=== PATIENT | female | born 1985 | race Caucasian/White ===

== ENCOUNTER → 2016-07-26 | Outpatient (CLI) | payer BC ==
[~2016-07-26] MED LIST: BCPILLS PO; DIPH25CA37 PO; EPP3/2 IM; LORA10TA57 PO; PRENTAB26 PO
[2016-07-26 16:36] LABS: HEMATOCRIT 36.5 % (37-47)
[2016-07-26 18:10] LABS: GTGD 50 Grams
[2016-07-26 18:18] LABS: URINE APPEARANCE CLEAR (CLEAR); URINE BILIRUBIN NEG (NEG); URINE COLOR YELLOW; URINE EPITHELIAL CELL AUTO 20-30 /lpf (0-5); URINE NITRITE NEG (NEG); URINE PH 6.5 (4.5-7.5); URINE SPECIFIC GRAVITY 1.015 (1.000-1.030); UROBILINOGEN NEG (NEG)
[2016-07-26 18:29] LABS: REVIEW REQ? NO
[2016-07-26 18:30] LABS: MANUAL MICROSCOPIC REQUIRED? NO
== END | disposition home or self-care (01) ==
LOC: C.LAB1850 15:31 → MERGE 15:31
PROVIDERS: ATTEND Obstetrics & Gynecology
DX: Z34.02 Encounter for supervision of normal first pregnancy, second trimester (principal)

== ENCOUNTER → 2016-09-20 | Outpatient (CLI) | payer BC ==
[~2016-09-20] MED LIST changes: +LORA-749 PO; -LORA10TA57 PO
== END | disposition home or self-care (01) ==
LOC: MERGE 17:23 → C.LABSPEC 17:23
PROVIDERS: ATTEND Obstetrics & Gynecology
DX: Z34.83 Encounter for supervision of other normal pregnancy, third trimester (principal)

== ENCOUNTER 2016-10-15 13:38 | Inpatient (IN) | payer BC ==
[~2016-10-15] VITALS: Ht 167.6 cm; Wt 75.0 kg
[~2016-10-15 13:38] MED LIST changes: -PRENTAB26 PO
[2016-10-15] MEDS ORDERED: LACTATED RINGER'S 1000ML 1,000 ML IV SCH (14:12)
[2016-10-15] MEDS ORDERED: LACTATED RINGER'S 1000ML 1,000 ML IV PRN (14:12)
[2016-10-15 14:44] LABS: HEMATOCRIT 42.6 % (37-47); MEAN CELL VOLUME 94.2 fL (80-100); MEAN CORPUSCULAR HEMOGLOBIN 34.1 pg (25-34); MEAN CORPUSCULAR HGB CONC 36.2 g/dl (32-36); MEAN PLATELET VOLUME 11.1 fL (7.4-10.4); PLATELET COUNT 183 K/uL (130-400); RED BLOOD COUNT 4.52 M/uL (4.2-5.4); WHITE BLOOD COUNT 12.81 K/uL (4.8-10.8)
[2016-10-15] MEDS ORDERED: PRENTAB26 PO (15:13)
[2016-10-15 15:14] VITALS: Ht 167.6 cm; Wt 75.0 kg
[2016-10-15] MEDS ORDERED: BUPIVACAINE 0.25% 30 ML VIAL ONE (17:48)
[2016-10-15] MEDS ORDERED: EpHEDrine SULFATE INJ 50 MG/ML AMP ONE (17:49)
[2016-10-15] MEDS ORDERED: FENTANYL 2MCG/ML ROPIV 1.25MG/ML 100ML BAG EPI ONE (17:50)
[2016-10-15] MEDS ORDERED: FENTANYL CITRATE INJ 50 MCG/1 ML 2 ML VIAL ONE (17:50)
[2016-10-15] MEDS ORDERED: NALOXONE HCL INJ 1 MG in SODIUM CHLORIDE 0.9% 1000ML 1,000 ML IV PRN (19:06)
[2016-10-15] MEDS ORDERED: LACTATED RINGER'S 1000ML 500 ML IV PRN (19:06)
[2016-10-15] MEDS ORDERED: ONDANSETRON INJ 2 MG/ML 2 ML VIAL IV PRN (19:15)
[2016-10-15] MEDS ORDERED: DiphenhydrAMINE HCL 50 MG/ML VIAL IV PRN (19:15)
[2016-10-15] MEDS ORDERED: FENTANYL 2MCG/ML ROPIV 1.25MG/ML 100ML BAG EPI PRN (19:15)
[2016-10-15] MEDS ORDERED: EpHEDrine SULFATE INJ 50 MG/ML AMP IV PRN (19:15)
[2016-10-15] MEDS ORDERED: NALBUPHINE HCL INJ 10 MG/ML AMP IV PRN (19:15)
[2016-10-15] MEDS ORDERED: NALOXONE HCL INJ 0.4 MG/1 ML VIAL/CARP IV PRN (19:15)
[2016-10-15] MEDS ORDERED: OXYTOCIN 30 UNITS/500ML NSS IV ONE (19:49)
[2016-10-15] MEDS ORDERED: ACETAMINOPHEN 325 MG TAB PO PRN (20:30)
[2016-10-15] MEDS ORDERED: HYDROCORTISONE ACETATE 25 MG SUPP PR PRN (20:30)
[2016-10-15] MEDS ORDERED: BENZOCAINE 20% AER SPR 82.5 GM CAN EXT PRN (20:30)
[2016-10-15] MEDS ORDERED: DIPHTHERIA/TETANUS/PERTUSSIS 0.5 ML SYR/VIAL IM. ONE (20:30)
[2016-10-15] MEDS ORDERED: OXYTOCIN 30 UNITS/500ML NSS IV PRN (20:30)
[2016-10-15] MEDS ORDERED: ACETAMINOPHEN/CODEINE 300/30MG TAB PO PRN ×2 (20:30)
[2016-10-15] MEDS ORDERED: SUPERCREAM 0.870 % 15GM JAR EXT PRN (20:30)
[2016-10-15] MEDS ORDERED: OXYCODONE/ACETAMINOPHEN 5-325 TAB PO PRN (20:30)
[2016-10-15] MEDS ORDERED: LANOLIN OINT EXT PRN ×2 (20:30)
--- NOTE | 2016-10-15 21:12 | Anesthesia Procedure Note ---
Anesthesia Epidural Removal Nt Date & Time October 15, 2016 at 21:12 Vital Signs Pain Intensity: 0.0 Notes Mental Status: alert / awake / arousable, participated in evaluation Nausea / Vomiting: adequately controlled Pain: adequately controlled Airway Patency, RR, SpO2: stable & adequate BP & HR: stable & adequate Hydration State: stable & adequate Neuraxial Anesthesia: was administered, sensory block is resolving Anesthetic Complications: no major complications apparent, pt satisfied with anesthetic care Epidural: removed without complications, with tip intact
[2016-10-15 23:15] VITALS: BP 125/87; PULSE 69; TEMP 37.3; O2SAT 97
[2016-10-15] MEDS: IBUPROFEN 600 MG TAB PO PRN (23:48)
[2016-10-16] VITALS (7 sets, daily range): BP systolic 112–135; BP diastolic 73–89; PULSE 64–75; TEMP 36.6–36.8; O2SAT 97–99
--- NOTE | 2016-10-16 00:04 | DELIVERY SUMMARY ---
DATE OF OPERATION: 10/15/2016 VAGINAL DELIVERY NOTE Kate presented to labor and delivery on the day of 10/15/2016. She was in active labor at 6 cm, group B strep negative, uncomplicated at 40 weeks. The patient eventually progressed to 7 cm. AROM was performed with thin meconium. She then requested epidural, soon after which she became fully dilated, then pushed for only a short period of time, delivering the baby in left occiput anterior position. Mouth and the nares suctioned with bulb and no nuchal cord noticed. Baby delivered with gentle traction, no excess force used. Live vigorous male infant. Delayed cord clamping occurred. Cord was clamped eventually after pulse was absent in the cord and then cord blood obtained. Placenta removed with gentle traction. She had a first-degree laceration which was repaired with 3-0 Vicryl, this was both on the left and right lateral vaginal areas. Estimated blood loss 150 mL. Sponge and instrument counts correct. I attest to the content of the Intraoperative Record and any orders documented therein. Any exceptio ns are noted below.
[2016-10-16 06:53] LABS: HEMATOCRIT 32.8 % (37-47)
--- NOTE | 2016-10-16 07:14 | Progress Note ---
Subjective October 16, 2016. Subjective conversation w/ patient, physical exam, lab review Ambulation: ambulating normally Voiding: no voiding problems Passing Gas: Yes Diet Tolerance: Regular Diet Lochia: Small Feeding Type: Breast Feeding Pain: improves with med Comment: Patient was seen at the bedside. No acute event overnight. Review of Systems Constitutional: No fever Respiratory: No cough, No shortness of breath Cardiac: No chest pain Breast: No breast lump Abdomen: No nausea, No pain, No vomiting Female : No dysuria Denies headache Objective Vital Signs Date Time Temp Pulse Resp B/P Pulse Ox O2 Delivery O2 Flow Rate FiO2 10/16/16 04:20 36.8 64 16 117/73 98 Room Air 10/15/16 23:15 97 Room Air 10/15/16 23:15 37.3 69 18 125/87 97 Room Air Physical Exam General Appearance: WELL-APPEARING, WD/WN, NO APPARENT DISTRESS Respiratory/Chest: chest non-tender, lungs clear, normal breath sounds, no respiratory distress Cardiovascular: regular rate, rhythm Abdomen: normal bowel sounds, non tender, soft Fundus: Firm, Relation to Umbilicus (1-2 cm below) Extremities: non-tender, no pedal edema, no calf tenderness Laboratory Results Last 24 Hours Test 10/15/16 14:36 10/16/16 06:17 White Blood Count 12.81 K/uL Red Blood Count 4.52 M/uL Hemoglobin 15.4 g/dL 11.4 g/dL Hematocrit 42.6 % 32.8 % Mean Corpuscular Volume 94.2 fL Mean Corpuscular Hemoglobin 34.1 pg Mean Corpuscular Hemoglobin Concent 36.2 g/dl RDW Standard Deviation 43.0 fL RDW Coefficient of Variation 12.6 % Platelet Count 183 K/uL Mean Platelet Volume 11.1 fL Medications Current Inpatient Medications Medications (Trade) Dose Ordered Sig/Michael Route Start Time Stop Time Status Last Admin Dose Admin Oxytocin (Pitocin IV) 30 units UD PRN IV 10/15/16 20:30 11/14/16 20:29 Benzocaine (Dermoplast Aero Spr) 1 appln PRN PRN EXT 10/15/16 20:30 11/14/16 20:29 Cocaine HCl (Supercream 0.870% Cr) BID PRN EXT 10/15/16 20:30 10/29/16 20:29 Hydrocortisone Acetate (Anusol Hc Supp) 25 mg BID PRN RI 10/15/16 20:30 11/14/16 20:29 Lanolin (Lanolin Oint) PRN PRN EXT 10/15/16 20:30 11/14/16 20:29 Prenat Multivit/ [place]/Iron/Folic Ac ( Vitamin Tab) 1 tab DAILY PO 10/16/16 08:00 11/15/16 07:59 Ibuprofen (Motrin Tab) 600 mg Q4H PRN PO 10/15/16 20:30 11/14/16 20:29 10/15/16 23:48 600 MG Acetaminophen (Tylenol Tab) 650 mg Q6H PRN PO 10/15/16 20:30 11/14/16 20:29 Acetaminophen/ Codeine Phosphate (Tylenol w/ Codeine #3 Tab) 1 tab Q4H PRN PO 10/15/16 20:30 11/14/16 20:29 Acetaminophen/ Codeine Phosphate (Tylenol w/ Codeine #3 Tab) 2 tab Q4H PRN PO 10/15/16 20:30 11/14/16 20:29 Bisacodyl (Dulcolax Tab) 5 mg 20 PO 10/16/16 20:00 10/16/16 20:01 Bisacodyl (Dulcolax Supp) 10 mg DAILY PRN RI 10/17/16 07:00 Docusate Sodium (coLACE CAP) 100 mg BID PO 10/16/16 08:00 11/15/16 07:59 Assessment and Plan Post- Day#: 1 Continue Routine Care: A/P: This is a 31 y/o female, , s/p normal vaginal delivery. She is ambulating and clinically stable. Plan: - Vitals signs are reviewed and WNL (Tmax 37.3 ) - Last Hgb is 11.4 - Blood type O+, GBS neg, Rubella Immune - Routine care - Encourage ambulation, monitor and control pain with medication as needed , continue with regular diet as tolerated and monitor lochia - Stool softeners and sitz bath recommended - Encourage breast feeding and educate about breast feeding Resident Physician Supervision Note: I interviewed and examined the patient. Discussed with Dr. Alba and agree with findings and plan as documented in the note. Any exceptions or clarifications are listed here: [None] Documented By: Leandor Dotson
[2016-10-16] MEDS: DOCUSATE SODIUM 100 MG CAP PO SCH ×2 (08:40→20:53)
[2016-10-16] MEDS: PRENATAL VITAMIN TAB PO SCH (08:40)
[2016-10-16] MEDS: IBUPROFEN 600 MG TAB PO PRN ×3 (08:42→23:17)
[2016-10-16] MEDS ORDERED: BISACODYL 5 MG TABEC PO SCH (20:00)
--- NOTE | 2016-10-17 06:48 | Progress Note ---
Subjective October 17, 2016. Subjective conversation w/ patient, physical exam, lab review Ambulation: ambulating normally Voiding: no voiding problems Passing Gas: Yes Diet Tolerance: Regular Diet Lochia: Small Feeding Type: Breast Feeding Pain: denies pain Comment: Patient was seen at the bedside. No acute event overnight. Review of Systems Constitutional: No fever Respiratory: No cough, No shortness of breath Cardiac: No chest pain Breast: No breast lump Abdomen: No nausea, No pain, No vomiting Female : No dysuria, No urinary frequency Denies headache Objective Vital Signs Date Time Temp Pulse Resp B/P Pulse Ox O2 Delivery O2 Flow Rate FiO2 10/16/16 23:20 Room Air 10/16/16 23:20 36.6 75 18 126/86 Room Air 10/16/16 20:55 Room Air 10/16/16 20:55 36.6 75 16 135/89 Room Air 10/16/16 16:02 Room Air 10/16/16 16:00 36.7 73 18 121/80 Room Air 10/16/16 11:55 36.7 67 16 119/76 97 Room Air 10/16/16 09:33 36.8 72 14 112/76 99 Room Air 10/16/16 08:40 Room Air Physical Exam General Appearance: WELL-APPEARING, WD/WN, NO APPARENT DISTRESS Respiratory/Chest: chest non-tender, lungs clear, normal breath sounds, no respiratory distress Cardiovascular: regular rate, rhythm Abdomen: normal bowel sounds, non tender, soft Fundus: Firm, Relation to Umbilicus (1-2cm below U) Extremities: non-tender, no pedal edema, no calf tenderness Medications Current Inpatient Medications Medications (Trade) Dose Ordered Sig/Michael Route Start Time Stop Time Status Last Admin Dose Admin Oxytocin (Pitocin IV) 30 units UD PRN IV 10/15/16 20:30 11/14/16 20:29 Benzocaine (Dermoplast Aero Spr) 1 appln PRN PRN EXT 10/15/16 20:30 11/14/16 20:29 Cocaine HCl (Supercream 0.870% Cr) BID PRN EXT 10/15/16 20:30 10/29/16 20:29 Hydrocortisone Acetate (Anusol Hc Supp) 25 mg BID PRN [place] 10/15/16 20:30 11/14/16 20:29 Lanolin (Lanolin Oint) PRN PRN EXT 10/15/16 20:30 11/14/16 20:29 Prenat Multivit/ [place]/Iron/Folic Ac ( Vitamin Tab) 1 tab DAILY PO 10/16/16 08:00 11/15/16 07:59 10/16/16 08:40 1 TAB Ibuprofen (Motrin Tab) 600 mg Q4H PRN PO 10/15/16 20:30 11/14/16 20:29 10/16/16 23:17 600 MG Acetaminophen (Tylenol Tab) 650 mg Q6H PRN PO 10/15/16 20:30 11/14/16 20:29 Acetaminophen/ Codeine Phosphate (Tylenol w/ Codeine #3 Tab) 1 tab Q4H PRN PO 10/15/16 20:30 11/14/16 20:29 Acetaminophen/ Codeine Phosphate (Tylenol w/ Codeine #3 Tab) 2 tab Q4H PRN PO 10/15/16 20:30 11/14/16 20:29 Bisacodyl (Dulcolax Supp) 10 mg DAILY PRN [place] 10/17/16 07:00 Docusate Sodium (coLACE CAP) 100 mg BID PO 10/16/16 08:00 11/15/16 07:59 10/16/16 20:53 100 MG Assessment and Plan Post- Day#: 2 Continue Routine Care: A/P: This is a 31 y/o female, , s/p normal vaginal delivery. She is ambulating and clinically stable to discharge. - Vital signs are reviewed and WNL (Tmax 36.8 ) - Last Hgb 11.4 - Blood type O+, GBS neg, Rubella Immune - No signs of depression. - Routine care - Discussed resting, feeding, pain control, mastitis, control, follow up in 6 weeks and reasons to call sooner, if necessary. - Continue with pain medication as needed, and continue vitamins. - Encourage breast feeding and educate about breast feeding - Patient understands and keen for home. - Plan to discharge home Resident Physician Supervision Note: I was present with Dr. Edwards during the history and exam. I discussed the case with the resident and agree with the findings and plan as documented in the note. Any exceptions or clarifications are listed here: Doing well and ready for discharge. f/u 6 wks pp check. . Instructions reviewed. Documented By: Shannon Porras
--- NOTE | 2016-10-17 06:53 | Discharge Instructions ---
Discharge Instructions Date of Service October 16, 2016. Admission Reason for Admission: R/O Labor Discharge Discharge Diagnosis / Problem: s/p Vaginal delivery Discharge Goals Goal(s): Routine recovery after delivery Medications Continue Dispensed Medications: supercream, dermaplast, tucks, lansinoh Activity Recommendations Activity Limitations: as noted below . Instructions / Follow-Up Instructions / Follow-Up ACTIVITY RECOMMENDATIONS: * Gradual return to full activity over the next 2-3 weeks. * No lifting - nothing heavier than baby over the next 2-3 weeks. * Do not engage in vigorous exercise, sexual activity or sports until cleared by your physician. * Do not drive or operate any motorized equipment until cleared by your physician. * You may shower/bathe daily. MEDICATIONS: For discomfort or pain, you may use Acetaminophen (Tylenol), Ibuprofen (Advil), or Naproxen (Aleve) following the package directions. For constipation you may use Colace following the package directions. BREAST CARE: If you are not breast feeding: * Wear a supportive bra 24 hours a day for one to two weeks. * Avoid stimulating your breasts and nipples as much as possible during the first few weeks after delivery. * When taking a shower, have the warm water hit your back, not breasts. * When your breasts feel full, apply ice packs. Usually three to four times a day helps ease the discomfort. * Take a mild pain medication (Tylenol / Motrin) when you are uncomfortable. If breast feeding: * Use breast milk to lubricate nipples. Lansinoh cream may be used for sore nipples. You do not need to remove cream prior to breast feeding. If using a different brand of cream, check the label for directions regarding removal of cream prior to nursing. * Wear a supportive bra. * If having problems with breasts or breast feeding, call a financial services education consultant or your health care provider. EPISIOTOMY CARE: After delivery, if you have an episiotomy (stitches), the following steps will ease discomfort and aid healing. * For the first 24 hours after delivery, place ice packs next to your episiotomy to help reduce swelling. * After the first 24 hour-period, sitz baths, either portable or in the tub, are suggested. A shower with a shower arm sprayed over the episiotomy may be comforting. * Landy care should be done after each voiding and bowel movement. Squirt warm water from a plastic bottle over the perineum (region of the body between the anus and urinary opening) and pat dry. * Use Dermoplast to ease discomfort. Shake container. [place] directly over the episiotomy. Place a Tucks on a clean sanitary pad next to your episiotomy. SPECIAL CARE INSTRUCTIONS: When you are discharged from the hospital, it is important for you to follow the instructions listed below: * During the first week at home, you should be able to care for yourself and your baby. In addition, the usual light household activities are encouraged. * Limit your activities to the way you feel. Do not try to clean the house or move furniture. Be sensible. * If you actively engage in sports and have done so up until the time of your delivery, you may resume these activities as soon as you feel able. This may take up to one month or even longer. Use good judgment. * Continue to take your vitamins for at least six weeks after the of your baby. * Your diet need not be limited unless you were on a special diet before your delivery. Breast-feeding mothers need around 2500 calories per day and at least 64-80 ounces of fluid per day (8 to 10 glasses). * You should eat foods from the four major food groups. Crash diets or fad diets are to be avoided. Eating lean meats, fresh fruits and vegetables, low-fat dairy products, high fiber foods and a regular exercise program, will help you get back to your pre- weight without putting your health at risk. * Constipation is sometimes a problem after delivery. Take a mild laxative as needed. If breast feeding, Milk of Magnesia is acceptable to use. You may use a suppository or Fleets enema if no episiotomy. * A daily shower or tub bath is suggested. Be sure to thoroughly and gently dry the perineum. * A bloody vaginal discharge will usually continue until around four weeks post . A small amount of bleeding may continue for as long as six weeks. Vaginal discharge changes from the bright red bleeding after delivery to pink then brownish and finally yellowish-pink before becoming white and disappearing. * Bleeding may increase with activity. Your first period may come in 4-8 weeks. If you are breast feeding, your period may be delayed even longer. * [place] (sex) can begin whenever both you and your partner feel comfortable and do not have any form of genital infection. It is recommended that you wait at least six weeks for internal and external healing to occur. If you have questions, please talk to your health care practitioner. A condom should be used to prevent infection and . * Foreplay, gentle intercourse and lubrication is very important the first several times to prevent pain. A water-based lubricant such as K-Y jelly or Astroglide may be used. * If you have RH negative blood and your baby is RH positive, you will receive RHOGAM by injection prior to discharge. The nurse will give you a card to keep with you that has the date and place that you received RHOGAM after delivery. * During your care, you had a Rubella screen done to check for the presence of rubella antibodies in your blood. If your test was negative, you will receive a Rubella vaccine prior to discharge. This vaccine may cause a fever, soreness at the injection site and flu-like symptoms. If these symptoms persist, notify your health care practitioner. is not advised for one month after a Rubella vaccine. * Verbalizes understanding of car seat law as reviewed with patient nursing. * Car Seat hand-out given and reviewed with patient by nursing. * Shaken baby information reviewed with patient by nursing. Call you doctor if: * Heavy bleeding (saturating several pads an hour) or passing clots the size of your fist. * A fever >101 degrees F (38.3 degrees C) on two occasions four hours apart and /or chills. * Unusual pain in the pelvic or vaginal areas. * "Baby Blues" lasting longer than two weeks. If you have any questions or concerns, call your health care practitioner at . FOLLOW UP VISIT: * Please call the office at to schedule a 6 week examination. It is important you keep this appointment. It is important for you to make arrangements for either yearly or twice yearly check-ups thereafter. Current Hospital Diet Patient's current hospital diet: Regular OB Diet Discharge Diet Recommended Diet: Regular Diet Pending Studies Studies pending at discharge: no Medical Emergencies . Who to Call and When: Medical Emergencies: If at any time you feel your situation is an emergency, please call 911 immediately. . Non-Emergent Contact Non-Emergency issues call your: [facility] Worker Call Non-Emergent contact if: you have a fever, temperature is above 101 . . "Provider Documentation" section prepared by Aaron Alba. . VTE Core Measure Inpt VTE Proph given/why not?: Treatment not indicated
[2016-10-17] MEDS ORDERED: BISACODYL 10 MG SUPP PR PRN (07:00)
[2016-10-17 07:45] VITALS: BP 124/85; PULSE 76; TEMP 36.7
[2016-10-17] MEDS: DOCUSATE SODIUM 100 MG CAP PO SCH (08:00)
[2016-10-17] MEDS: PRENATAL VITAMIN TAB PO SCH (08:25)
[2016-10-17 15:30] VITALS: BP 122/90; PULSE 88; TEMP 37
[2016-10-17 17:00] VITALS: BP_DIAS 90; PULSE 88; TEMP 37
== END 2016-10-17 17:05 | disposition home or self-care (01) | DRG 775 ==
LOC: C.OPB 13:38 → C.LD 13:38 → C.OPB 14:13 → C.OBG 22:52
PROVIDERS: ADMIT Obstetrics & Gynecology; ATTEND Obstetrics & Gynecology
PROC: 10E0XZZ Delivery of Products of Conception, External Approach (ICD-10-PCS; principal; 2016-10-15)
PROC: 0UQGXZZ Repair Vagina, External Approach (ICD-10-PCS; principal; 2016-10-15)
DX: O71.4 Obstetric high vaginal laceration alone (principal); O77.0 Labor and delivery complicated by meconium in amniotic fluid; Z37.0 Single live birth; Z3A.40 40 weeks gestation of pregnancy

== ENCOUNTER → 2017-01-24 | Outpatient (CLI) | payer BC ==
[~2017-01-24] MED LIST changes: -BCPILLS PO; -LORA-749 PO; +LORA10TA57 PO; +PRENTAB26 PO
[2017-01-24 10:30] LABS: PREG INTERNAL NEGATIVE QC NEG CLEAR BACKGROUND; PREG INTERNAL POSITIVE QC POS CONTROL LINE
== END | disposition home or self-care (01) ==
LOC: C.LAB1850 09:03
PROVIDERS: ATTEND Physician Assistant
DX: Z30.9 Encounter for contraceptive management, unspecified (principal)

== ENCOUNTER → 2017-04-16 | Outpatient (CLI) | payer BC ==
[~2017-04-16] MED LIST changes: +LORA-749 PO; -LORA10TA57 PO
== END | disposition home or self-care (01) ==
LOC: C.LABSPEC 11:35
PROVIDERS: ATTEND Nurse Practitioner Adult Health
DX: J02.9 Acute pharyngitis, unspecified (principal)

== ENCOUNTER 2021-01-29 22:00 | Inpatient (IN) ==
[2021-01-29] MEDS ORDERED: OXYTOCIN 30 UNITS/500 ML BAG IV PRN ×2 (22:33→23:42)
[2021-01-29] MEDS ORDERED: LACTATED RINGER'S 1,000 ML IV PRN (22:33)
--- NOTE | 2021-01-29 22:41 | History & Physical Report ---
Date of Service January 29, 2021 Assessment & Plan (1) : Plan: 35 y/o presents in labor mild range BP on admission however pt very uncomfortable, will monitor Fetus cat 1 labor - augment prn GBS neg desires epidural History of Present Illness Chief Complaint: Contractions Primary Care Provider: EMILI PCP 35 y/o at 39 3/7 wga w/ ENRRIQUE 9/3 by LMP presents w/ c/o ctx increasing in frequency and intensity since 7pm. 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 Verified 01/29/21 22:22 Antibiotics) Home Medications Medication Instructions Recorded Confirmed Type methylphenidate HCl 54 mg 36 mg PO DAILY 06/21/19 01/29/21 History tablet,extended release 24 hr (Concerta) prenat.vits,mateus,[id number] 1 tab PO DAILY 06/19/20 01/29/21 History breast pump #1 ea 01/04/21 01/25/21 Rx Patient History Medical History Varicella vaccination Surgical History surgically induced Family History Grandfather (Maternal) Colorectal cancer Myocardial infarction Father Hypertension Kidney stone Grandfather (Paternal) Prostate cancer Myocardial infarction Other Diabetes Denies family history of Ovarian cancer Breast cancer Social History Smoking Status: Never smoker Second Hand Exposure: No; Hx Alcohol Use: No Hx Substance Use: No Preferred Language: Italian Communication Ability: Effective Visual Impairment: No Limitations Hearing Ability: Normal Last Code Striper Required: No Beliefs That Will Affect Care: None marital status: marital status details: Amish Hernandez (34) [phone] Current Living Situation: Spouse and Family Current Living Situation Comment: 4 year old son and current occupational status: employed current occupation: realtor Other Information That Helps Us Care for You: No Feels Safe at Home: Yes Safety Concerns: Feels Safe At This Time Childhood Exposure to Second-Hand Smoke: No Dental Care, Regularly: Yes Physical Activity Frequency: 3-4 Times per Week Seatbelt Use: always Sunscreen Use: Yes Assistive Devices: Contacts and Glasses Physical Exam Constitutional: WD/WN, vitals as above Respiratory: normal respiratory effort; no respiratory distress and no labored breathing Psychiatric: A+Ox3, euthymic affect Genitourinary: OB Exam Abdomen: + vertex Manual OB Exam: + cervical dilation 4 cm, + cervical effacement 70% and + station -2 OB Exam Monitor Tracing: + external FHT monitor used, + external uterine monitor used (q3) and + category I (125/mod/+accel/-decel) Results & Data ([facility]) Vital Signs (Past 12 Hours) Vital Signs Pulse BP 01/29/21 22:17 72 141/90 H Laboratory Results OB Labs: Blood Type O Positive 06/26/20 Antibody Screen NEGATIVE 06/26/20 Hemoglobin 12.4 g/dL (12.0-16.0) 11/21/20 Hematocrit 36.9 % (37-47) L 11/21/20 Mean Corpuscular Volume 94.9 fL (80-100) 06/26/20 Platelet Count 231 K/uL (130-400) 06/26/20 Rubella IgG Antibody Immune (Immune) 06/26/20 Rapid Plasma Reagin Nonreactive (Nonreactive) 06/26/20 Hepatitis B Surface Antigen Neg (Neg) 06/26/20 HIV (1&2) Ab and P24 Ag, 4th Gener Neg (Neg) 06/26/20 Glucose 1 Hour 50 gm Load 123 mg/dl (70-130) 11/21/20 OB Optional Labs: Chlamydia trachomatis RNA NOT DETECTED (NOT DETECTED) 06/26/20 Neisseria gonorrhoeae RNA NOT DETECTED (NOT DETECTED) 06/26/20 Labs Reviewed: CF DNA--> low risk. Coding Level of Care Code None Diagnoses Z34.90
[2021-01-29 22:58] LABS: Hematocrit (blood only) 39.4 % (37-47); Hemoglobin 13.6 g/dL (12.0-16.0); Mean Corpuscular Hemoglobin 32.8 pg (25-34); Mean Corpuscular Volume 94.9 fL (80-100); Mean Platelet Volume 10.8 fL (7.4-10.4); Platelet Count 234 K/uL (130-400); RDW Standard Deviation 44.6 fL (36.4-46.3); Red Blood Count 4.15 M/uL (4.2-5.4)
[2021-01-29] MEDS ORDERED: SODIUM CHLORIDE 0.9% INJ 10 ML VIAL ONE (22:59)
[2021-01-29] MEDS ORDERED: ePHEDrine sulfate 50 MG/ML AMP ONE (22:59)
[2021-01-29] MEDS ORDERED: BUPIVACAINE 0.25% 30 ML VIAL ONE (22:59)
[2021-01-29] MEDS ORDERED: fentaNYL citrate 100 MCG/2 ML VIAL ONE (22:59)
[2021-01-29 23:00] LABS: Mean Corpuscular Hgb Conc 34.5 g/dL (32-36)
[2021-01-29] MEDS ORDERED: fentaNYL 2MCG/ML ROPIVACAINE 1.25MG/ML 100 ML BAG EPI ONE (23:00)
--- NOTE | 2021-01-29 23:01 | Anesthesiology Consultation ---
Date of Service January 29, 2021 Assessment & Plan ASA ASA2 Proposed Anesthesia Anesthesia Type: Labor Epidural Risk / Benefits Reviewed With: PT / POA / Parent / Guardian, Accepts Plan and Informed Consent Obtained History Height/Weight Height: 5 ft 6 in Weight: 164 kg Allergies Allergy/AdvReac Type Severity Reaction Status Date / Time Sulfa (Sulfonamide Allergy Unknown . Verified 01/29/21 22:22 Antibiotics) Medications Home Medications Medication Instructions Recorded Confirmed Last Taken methylphenidate HCl 54 mg 36 mg PO DAILY 06/21/19 01/29/21 01/29/21 08:00 tablet,extended release 24 hr (Concerta) prenat.vits,mateus,[id number] 1 tab PO DAILY 06/19/20 01/29/21 01/29/21 08:00 breast pump #1 ea 01/04/21 01/25/21 Unknown Active Medications Generic Name Dose Route Start Last Admin Trade Name Freq PRN Reason Stop Dose Admin Lactated Ringer's 1,000 mls @ 125 mls/hr 01/29/21 22:33 01/29/21 22:51 Lr IV 01/31/21 22:32 999 mls/hr .Q8H PRN Administration L&D Protocol Protocol Past Medical History Medical History Varicella vaccination Exercise / Class Metabolic Activity II 4-5 Yardwork/Stairs/Walk up hill Past Family History Family History Grandfather (Maternal) Colorectal cancer Myocardial infarction Father Hypertension Kidney stone Grandfather (Paternal) Prostate cancer Myocardial infarction Other Diabetes Denies family history of Ovarian cancer Breast cancer Past Surgical History Surgical History Past Anesthesia History No Hx of Anesthesia Complications and No Family Hx of Anesthesia Complications History of PONV No Hx of PONV and No Hx of Motion Sickness Social History Smoking Status: Never smoker Hx Alcohol Use: No Alcohol type: beer and wine Hx Substance Use: No substance use type: does not use Review of Systems denies fever/cough/ colds/ chest pain/ SOB/ MARCE denies MARCE Physical Exam Vital Signs Last Vital Signs Temp 36.9 C 01/29/21 22:23 Pulse 76 01/29/21 22:58 Resp 18 01/29/21 22:23 BP 141/90 H 01/29/21 22:23 Pulse Ox 97 01/29/21 22:58 ENMT Mouth: no TMJ abnormality and no dentition abnormality Thyromental Distance: > or= 3.5 Finger Breadths Mallampati Class: II Neck neck extension not limited Respiratory normal respiratory effort; no respiratory distress Auscultation: lungs clear to auscultation bilaterally Cardiovascular Rate/Rhythm: regular rate and regular rhythm Neurologic moves all extremities Psychiatric Orientation: alert and oriented x 3 Testing Laboratory Results 01/29/21 22:48
[2021-01-29] MEDS ORDERED: fentaNYL 2MCG/ML ROPIVACAINE 1.25MG/ML 100 ML BAG EPI PRN (23:02)
[2021-01-29] MEDS ORDERED: NALOXONE HCL 0.4 MG/1 ML VIAL/CARP IV PRN (23:02)
[2021-01-29] MEDS ORDERED: diphenhydrAMINE 50 MG/ML VIAL IV PRN (23:02)
[2021-01-29] MEDS ORDERED: NALBUPHINE HCL INJ 10 MG/ML AMP IV PRN (23:02)
[2021-01-29] MEDS ORDERED: ONDANSETRON INJ 2 MG/ML 2 ML VIAL IV PRN (23:02)
[2021-01-29] MEDS ORDERED: ePHEDrine sulfate 50 MG/ML AMP IV PRN (23:02)
[2021-01-29] MEDS ORDERED: NALOXONE HCL 1 MG in SODIUM CHLORIDE 0.9% 1000ML 1,000 ML IV PRN (23:02)
[2021-01-29] MEDS ORDERED: LIDOCAINE 1% LOCAL 20 ML VIAL ONE (23:10)
[2021-01-29] MEDS ORDERED: BENZOCAINE 20% AER SPR 82.5 GM CAN EXT PRN (23:42)
[2021-01-29] MEDS ORDERED: SUPERCREAM 0.870% 15 GM JAR EXT PRN (23:42)
[2021-01-29] MEDS ORDERED: HYDROCORTISONE ACETATE 25 MG SUPP PR PRN (23:42)
[2021-01-29] MEDS ORDERED: DIPHTHERIA/TETANUS/PERTUSSIS 0.5 ML SYR/VIAL IM ONE (23:42)
[2021-01-29] MEDS ORDERED: ACETAMINOPHEN 325 MG TAB PO PRN (23:42)
[2021-01-29] MEDS ORDERED: bisacodyL 10 MG SUPP PR PRN (23:42)
--- NOTE | 2021-01-29 23:47 | Delivery Summary ---
Vaginal Delivery Summary Date of Service January 29, 2021 Vaginal Delivery Summary [facility] PREOPERATIVE DIAGNOSIS: 1. Single intrauterine at 39 3/7 wga 2. Labor 3. 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 Single intrauterine at 39 3/7 wga 2. Labor 3. 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 Delivered PROCEDURE: 1. Normal spontaneous vaginal delivery. SURGEON: Eri Willson MD ANESTHESIA: None ESTIMATED BLOOD LOSS: 300 mL FLUIDS: Continuous LR. URINE OUTPUT: None. COMPLICATIONS: None. CONDITION: Stable. INDICATIONS: 35 y/o at 39 3/7 wga presented with complaints of contractions increasing in frequency and intensity since 7pm this evening. She was checked and found to be 4cm. Shortly after admission, she underwent spontaneous rupture of membranes. She desired epidural however rapidly progr essed to complete following SROM and desired to push before anesthesia arrival. FINDINGS: A viable female weight pending with Apgars of 9 and 9 at 1 and 5 minutes respectively. SPECIMEN: cord blood OPERATIVE REPORT: The patient progressed to 10 cm, 100% effaced and +2 station, pushed over intact perineum with anesthesia to deliver a viable female , Apgars as above. Head of delivered in EVELINE position. No nuchal cord was present. Body and shoulders were delivered without difficulty. was delivered to maternal abdomen and nursing staff. Delayed cord clamping was perf ormed for 60 seconds. Cord was clamped and cut. Cord blood was obtained. Placenta delivered spontaneously intact with 3-vessel cord. IV oxytocin and fundal massage were given for excellent hemostasis. Vagina, cervix, perineum, and placenta were inspected. Hemostatic L labial abrasion and small vaginal tear at introitus were noted and not needed to be repaired. Sponge and needle counts correct x2. No sponges were left behind. Mother and stable in immediate period. [facility] Vaginal Delivery Charge Vaginal Delivery Codes: 41454 global code for the antepartum, delivery, and post- Delivery Type Details: [facility]
[2021-01-30] MEDS: IBUPROFEN 600 MG TAB PO PRN ×4 (00:02→20:05)
[2021-01-30 06:20] LABS: Hematocrit (blood only) 34.1 % (37-47); Hemoglobin 11.5 g/dL (12.0-16.0); Mean Corpuscular Hemoglobin 32.6 pg (25-34); Mean Corpuscular Hgb Conc 33.7 g/dL (32-36); Mean Corpuscular Volume 96.6 fL (80-100); Mean Platelet Volume 10.5 fL (7.4-10.4); Platelet Count 186 K/uL (130-400); RDW Standard Deviation 44.5 fL (36.4-46.3); Red Blood Count 3.53 M/uL (4.2-5.4); White Blood Count 12.02 K/uL (4.8-10.8)
--- NOTE | 2021-01-30 06:41 | Obstetrical Progress Note ---
Date of Service <Isabella Vazquez MD - Last Filed: 01/30/21 07:53> January 30, 2021 Assessment & Plan <Isabella Vazquez MD - Last Filed: 01/30/21 07:53> (1) Vaginal delivery: 35 yo now POD1 from at 39 wks 4 days -Continue routine care, anticipated d/c tomorrow -Vitals reviewed- HDS, afebrile -Blood type O+, GBS -, Rubella immune -Encourage ambulation -Pain control with Motrin, Tylenol PRN -Regular diet -Monitor lochia -Encourage -Hgb 11.5, asymptomatic -F/u in 6 weeks with OB -Requesting child's renal US and VCUG is done <Lyn Hinkle MD, FACOG - Last Filed: 01/30/21 07:54> (1) Vaginal delivery: Subjective <Isabella Vazquez MD - Last Filed: 01/30/21 07:53> Ambulation: ambulating normally Voiding: no voiding problems Passing Gas:: Yes Diet Tolerance:: regular diet Lochia:: Small Feeding Type:: breast feeding Current Pain Level(1-10): 0 Pt doing well, no acute events or complaints. Has not passed BM yet. Parents stated their child still needs to get renal US and VCUG done. Review of Systems Denies fevers, chills, dyspnea, chest pain, breast pain, dysuria, headache. Physical Exam <Isabella Vazquez MD - Last Filed: 01/30/21 07:53> General: Alert, oriented, no acute distress Cardiac: Regular rate and rhythm, normal S1, S2. No murmurs appreciated. Respiratory: Clear to auscultation b/l with good air flow entry, symmetric chest rise and fall. No wheezes or crackles. No increased work of breathing or accessory muscle use Abdomen: Soft, nontender. Fundus firm and palpable at 2 cm below umbilicus. No guarding or rebound. Skin: No rashes or lesions Extremities: Warm, dry, well-perfused with capillary refill <2s b/l. No lower extremity edema, erythema or swelling. Negative Vel's sign b/l. Results & Data ([facility]) <Isabella Vazquez MD - Last Filed: 01/30/21 07:53> Vital Signs (Past 12 Hours) Vital Signs Temp Pulse Pulse Resp BP BP Pulse Ox 01/30/21 06:21 36.6 C 70 18 121/77 99 01/30/21 02:15 37.0 C 74 16 127/86 98 01/30/21 01:32 71 131/78 01/30/21 01:30 20 01/30/21 01:17 66 120/73 01/30/21 01:02 81 129/83 01/30/21 01:00 16 01/30/21 00:47 77 127/80 01/30/21 00:32 71 124/73 01/30/21 00:30 18 01/30/21 00:17 75 127/86 01/30/21 00:15 16 01/30/21 00:02 71 129/83 01/30/21 00:00 18 01/29/21 23:47 70 137/82 01/29/21 23:45 20 01/29/21 23:30 18 01/29/21 23:26 88 142/82 H 01/29/21 23:13 151 H 98 01/29/21 23:08 96 H 99 01/29/21 23:03 76 97 01/29/21 22:58 76 97 01/29/21 22:23 36.9 C 72 18 141/90 H 01/29/21 22:17 36.9 C 72 18 141/90 H <Lyn Hinkle MD, FACOG - Last Filed: 01/30/21 07:54> Co-Signing Physician Notes Resident Physician Supervision Note: I interviewed and examined the patient. Discussed with Dr. Vazquez and agree with findings and plan as documented in the note. Any exceptions or clarifications are listed here: Doing well. Routine care. Likely home tomorrow. Documented By: Lyn Hinkle MD, FACOG Resident Activity Tracking <Isabella Vazquez MD - Last Filed: 01/30/21 07:53> Resident Involvement: Resident Care Provided Care Provided: OB Delivery
[2021-01-30] MEDS: PRENATAL VITAMIN 1 TAB PO SCH (08:22)
[2021-01-30] MEDS: DOCUSATE SODIUM 100 MG CAP PO SCH ×2 (08:22→20:05)
[2021-01-30] MEDS ORDERED: bisacodyL 5 MG TABEC PO SCH (20:00)
--- NOTE | 2021-01-31 06:10 | Obstetrical Progress Note ---
Date of Service <Isabella Vazquez MD - Last Filed: 01/31/21 07:03> January 31, 2021 Assessment & Plan <Isabella Vazquez MD - Last Filed: 01/31/21 07:03> (1) Vaginal delivery: 35 yo now PPD2 from [facility] at 39 wks 4 days -Discharge today -Vitals reviewed- HDS, afebrile -Blood type O+, GBS -, Rubella immune -Encourage ambulation -Pain control with Motrin, Tylenol PRN -Regular diet -Monitor lochia -Encourage -Hgb 11.5, asymptomatic -F/u in 6 weeks with OB -Baby's VCUG to be done outpatient <Lyn Hinkle MD, FACOG - Last Filed: 01/31/21 07:10> (1) Vaginal delivery: Subjective <Isabella Vazquez MD - Last Filed: 01/31/21 07:03> Ambulation: ambulating normally Voiding: no voiding problems Passing Gas:: Yes Diet Tolerance:: regular diet Lochia:: Small Feeding Type:: breast feeding Current Pain Level(1-10): 0 Pt doing well, no acute events or complaints. Has not passed BM yet. Rib pain improving, no dyspnea. Parents plan to get VCUG for child done outpatient. Review of Systems Denies fevers/chills. +Rib pain, denies dyspnea, cough. Denies chest pain. Denies breast pain or discharge. Denies dysuria. Denies headache. Physical Exam <Isabella Vazquez MD - Last Filed: 01/31/21 07:03> General: Alert, oriented, no acute distress Cardiac: Regular rate and rhythm, normal S1, S2. No murmurs appreciated. Respiratory: Clear to auscultation b/l with good air flow entry, symmetric chest rise and fall. No wheezes or crackles. No increased work of breathing or accessory muscle use Abdomen: Soft, nontender. Fundus firm and palpable at 2 cm below umbilicus. No guarding or rebound. MSK: No tenderness to palpation of ribs Skin: No rashes or lesions Extremities: Warm, dry, well-perfused with capillary refill <2s b/l. No lower extremity edema, erythema or swelling. Negative Vel's sign b/l. Results & Data ([facility]) <Isabella Vazquez MD - Last Filed: 01/31/21 07:03> Vital Signs (Past 12 Hours) Vital Signs Temp Pulse Resp BP Pulse Ox 01/30/21 23:00 36.6 C 81 16 122/86 98 01/30/21 20:00 36.7 C 80 18 124/84 <Lyn Hinkle MD, FACOG - Last Filed: 01/31/21 07:10> Co-Signing Physician Notes Resident Physician Supervision Note: I interviewed and examined the patient. Discussed with Dr. Vazquez and agree with findings and plan as documented in the note. Any exceptions or clarifications are listed here: Doing well. Plan d/c. Instructions given. Documented By: Lyn Hinkle MD, FACOG Resident Activity Tracking <Isabella Vazquez MD - Last Filed: 01/31/21 07:03> Resident Involvement: Resident Care Provided Care Provided: OB Delivery
[2021-01-31] MEDS ORDERED: METHYLPHENIDATE 36 MG PO SCH (09:00)
[2021-01-31] MEDS ORDERED: PATIENT'S OWN CONTROLLED MED 1 PO SCH (09:00)
[2021-01-31] MEDS: DOCUSATE SODIUM 100 MG CAP PO SCH (09:02)
[2021-01-31] MEDS: PRENATAL VITAMIN 1 TAB PO SCH (09:02)
[2021-01-31] MEDS: IBUPROFEN 600 MG TAB PO PRN (09:02)
== END 2021-01-31 10:15 | disposition home or self-care (01) | DRG 807 ==
LOC: OPB 22:00 → 4S1 22:03 → 4S2 01-30 02:21